=== PATIENT | female | born 1935 | race Caucasian/White ===

== ENCOUNTER 2017-05-30 05:55 | Inpatient (IN) ==
[2017-05-30] MEDS ORDERED: NS 1,000 ML IV ONE (06:00)
--- NOTE | 2017-05-30 06:04 | Emergency Department Report ---
General Adult HPI - General Chief complaint: Altered Mental Status Stated complaint: Sepsis Time Seen by Provider: 05/30/17 06:00 Source: patient, EMS Mode of arrival: EMS - History of Present Illness HPI narrative: Patient is an 81-year-old female, brought to the ER for evaluation of altered mental status, weakness, respiratory distress, crackles. Patient increasing respiratory symptoms for the past 2 days, did receive a chest x-ray yesterday which showed increased atelectasis bilaterally by pulmonary report. Patient was started on azithromycin 500 mg last night. This morning patient was found to be confused, significant crackles low O2 sats. EMS was called patient was placed on oxygen by nasal cannula brought to the emergency department for evaluation. Onset (ago): day(s) - Related Data Allergies Allergy/AdvReac Type Severity Reaction Status Date / Time cefaclor Allergy Unknown Unverified 05/30/17 08:45 latex Allergy Unknown Verified 05/30/17 08:45 [email or web address] Allergy Unknown Unverified 05/30/17 08:45 Review of Systems Constitutional: Reports: fever, weakness. Denies: chills ENT: Reports: congestion. Denies: throat pain, dental pain Cardiovascular: Reports: dyspnea on exertion. Denies: chest pain, palpitations Respiratory: Reports: cough, dyspnea, wheezes Gastrointestinal: Reports: diarrhea. Denies: abdominal pain, nausea, vomiting Neurological: Denies: headache, weakness, numbness Psychiatric: Reports: anxiety. Denies: depression Endocrine: Reports: fatigue PFSH Patient Stated Medical History Parkinson's Disease Yes Hypertension Yes Depression Yes Clinic Medical History (Last Reviewed 04/09/17 @ 09:47 by BENJIE Valentin) Rhinovirus (Acute Medical) Altered mental status (Acute Medical) Abdominal pain (Chronic Medical) Anxiety (Chronic Medical) COPD (chronic obstructive pulmonary disease) (Chronic Medical) Cerebrovascular disease (Chronic Medical) Dementia (Chronic Medical) Depression (Chronic Medical) GERD (gastroesophageal reflux disease) (Chronic Medical) HTN (hypertension) (Chronic Medical) Insomnia (Chronic Medical) Knee pain (Chronic Medical) Parkinsons disease (Chronic Medical) Surgical History: Right hip x 2. Left hip Family History: Family History (Last Reviewed 04/09/17 @ 09:47 by BENJIE Valentin) Mother Heart attack Thyroid disease Diabetes Dementia Arthritis Father Thyroid disease Aneurysm - Social History Smoking status: Never smoker Substance use type: does not use Alcohol intake frequency: does not drink Physical Exam - Head Head exam: normocephalic - Eye Eye exam: Present: PERRL - ENT ENT exam: Present: normal oropharynx, mucous membranes moist - Neck Neck exam: Absent: tenderness - Chest Chest inspection: Present: symmetric chest wall rise. Absent: tenderness - Respiratory Respiratory exam: Present: crackles. Absent: normal lung sounds bilaterally, respiratory distress - Cardiovascular Cardiovascular exam: Present: regular rate, normal rhythm, normal heart sounds - Abdominal Exam Abdominal exam: Present: soft. Absent: distention, tenderness - Extremities Exam Extremities exam: Present: full ROM, normal capillary refill. Absent: tenderness - Skin Skin exam: Present: warm, dry Course Vital Signs Temperature 100.1 F 05/30/17 05:55 Pulse Rate 99 05/30/17 05:55 Respiratory Rate 18 05/30/17 05:55 Blood Pressure 101/56 05/30/17 05:55 Pulse Oximetry 95 05/30/17 05:55 Temperature 100.1 F 05/30/17 05:55 Pulse Rate 104 H 05/30/17 07:06 Respiratory Rate 24 05/30/17 07:06 Blood Pressure 101/56 05/30/17 05:55 Pulse Oximetry 98 05/30/17 07:06 Medical Decision Making - Medical Records Medical records reviewed: Yes: I reviewed the patient's medical records. - Lab Data Lab results reviewed: Yes: I reviewed the patient's lab results. Result diagrams: 05/30/17 06:12 05/30/17 06:13 Lab Results 05/30/17 05/30/17 05/30/17 Range/Units 06:12 06:12 06:13 WBC 4.7 (4.5-11.0) T/MM3 RBC 3.33 L (4.00-5.20) M/MM3 Hgb 11.4 L (12-16) GM/DL Hct 33.5 L (36-46) % MCV 100.6 H (80-100) UM3 MCH 34.2 H (26-34) UUG MCHC 34.0 (31-37) GM/DL RDW Std Deviation 51.1 H (36.9-50.2) FL Plt Count 93 L (130-400) T/MM3 MPV 9.8 (9.4-12.4) UM3 Immature Gran % (Auto) Not performed Neut % (Auto) Not performed Lymph % (Auto) Not performed [place] % (Auto) Not performed Eos % (Auto) Not performed Baso % (Auto) Not performed Neut # (Auto) Not performed Lymph # (Auto) Not performed [place] # (Auto) Not performed Eos # (Auto) Not performed Baso # (Auto) Not performed Abs Immat Gran (auto) Not performed Neutrophils % (Manual) 47.0 (33-66) % Band Neutrophils % 31.0 H (0-6) % Lymphocytes % (Manual) 12.0 L (23-45) % Monocytes % (Manual) 10.0 H (0-9.0) % Neutrophils # (Manual) 2.2 (1.8-7.7) T/MM3 Band Neutrophils # 1.5 T/MM3 Lymphocytes # (Manual) 0.6 L (1-4.8) T/MM3 Monocytes # (Manual) 0.5 (0-0.8) T/MM3 Anisocytosis 1+ RBC Morph Comment Abnormal Turbidity < 20 (0-20) Sodium 136 (134-144) MEQ/L Potassium 3.9 (3.6-5) MEQ/L Chloride 104 (98-107) MEQ/L Carbon Dioxide 25 (22-30) MEQ/L Anion Gap 7 (5-15) MEQ/L BUN 25.0 H (7-17) MG/DL Creatinine 1.1 (0.7-1.2) MG/DL GFR Calculation 48 BUN/Creatinine Ratio 23 (6-26) RATIO Glucose 87 (65-110) MG/DL Calculated Osmolality 265 (261-280) MOSM/KG Calcium 8.7 (8.4-10.2) MG/DL Total Bilirubin 0.70 (0.20-1.30) MG/DL Icterus Index < 2 (0-7) AST 32 (14-36) U/L ALT 25 (9-52) U/L Alkaline Phosphatase 63 (38-126) U/L Troponin I < 0.012 (0-0.12) ng/ml Total Protein 5.6 L (6.3-8.2) G/DL Albumin 3.0 L (3.5-5.0) G/DL Globulin 2.6 (2.4-3.6) G/DL Albumin/Globulin Ratio 1.2 (1.1-2.2) RATIO Plasma Lactate 1.5 (0.6-2.2) MMOL/L Procalcitonin 5.59 H* NG/ML Specimen Hemolysis < 15 (0-25) Ur Collection Type Urine Color (YELLOW) Urine Clarity Urine pH (5.0-8.0) Ur Specific Victor (1.015-1.025) Urine Protein (NEGATIVE) Urine Glucose (UA) (NEGATIVE) Urine Ketones (NEGATIVE) Urine Occult Blood (NEGATIVE) Urine Nitrate (NEGATIVE) Urine Bilirubin (NEGATIVE) Urine Urobilinogen (NORMAL) EU/DL Ur Leukocyte Esterase (NEGATIVE) Urine RBC (0-3) /HPF Urine WBC (0-5) /HPF Ur Transition Epith Cell /HPF Urine Bacteria (NEGATIVE) Ur Culture Indicated? Valproic Acid 77.9 (50-120) UG/ML Adenovirus (PCR) (Negative) B.parapertussis DNA PCR (Negative) C. pneumoniae DNA (PCR) (Negative) Coronavirus OC43 (PCR) (Negative) Coronavirus HKU1 (PCR) (Negative) Coronavirus 229E (PCR) (Negative) Coronavirus NL63 (PCR) (Negative) Human Metapneumovir PCR (Negative) Influenza Type A (PCR) (Negative) Influenza Type B (PCR) (Negative) M. pneumoniae (PCR) (Negative) Parainfluenza 1 (PCR) (Negative) Parainfluenza 2 (PCR) (Negative) Parainfluenza 3 (PCR) (Negative) Parainfluenza 4 (PCR) (Negative) RSV (PCR) (Negative) Entero/Rhino (PCR) (Negative) 05/30/17 05/30/17 Range/Units 06:14 07:22 WBC (4.5-11.0) T/MM3 RBC (4.00-5.20) M/MM3 Hgb (12-16) GM/DL Hct (36-46) % MCV (80-100) UM3 MCH (26-34) UUG MCHC (31-37) GM/DL RDW Std Deviation (36.9-50.2) FL Plt Count (130-400) T/MM3 MPV (9.4-12.4) UM3 Immature Gran % (Auto) Neut % (Auto) Lymph % (Auto) [place] % (Auto) Eos % (Auto) Baso % (Auto) Neut # (Auto) Lymph # (Auto) [place] # (Auto) Eos # (Auto) Baso # (Auto) Abs Immat Gran (auto) Neutrophils % (Manual) (33-66) % Band Neutrophils % (0-6) % Lymphocytes % (Manual) (23-45) % Monocytes % (Manual) (0-9.0) % Neutrophils # (Manual) (1.8-7.7) T/MM3 Band Neutrophils # T/MM3 Lymphocytes # (Manual) (1-4.8) T/MM3 Monocytes # (Manual) (0-0.8) T/MM3 Anisocytosis RBC Morph Comment Turbidity (0-20) Sodium (134-144) MEQ/L Potassium (3.6-5) MEQ/L Chloride (98-107) MEQ/L Carbon Dioxide (22-30) MEQ/L Anion Gap (5-15) MEQ/L BUN (7-17) MG/DL Creatinine (0.7-1.2) MG/DL GFR Calculation BUN/Creatinine Ratio (6-26) RATIO Glucose (65-110) MG/DL Calculated Osmolality (261-280) MOSM/KG Calcium (8.4-10.2) MG/DL Total Bilirubin (0.20-1.30) MG/DL Icterus Index (0-7) AST (14-36) U/L ALT (9-52) U/L Alkaline Phosphatase (38-126) U/L Troponin I (0-0.12) ng/ml Total Protein (6.3-8.2) G/DL Albumin (3.5-5.0) G/DL Globulin (2.4-3.6) G/DL Albumin/Globulin Ratio (1.1-2.2) RATIO Plasma Lactate (0.6-2.2) MMOL/L Procalcitonin NG/ML Specimen Hemolysis (0-25) Ur Collection Type Urine, catheter Urine Color Yellow (YELLOW) Urine Clarity Clear Urine pH 7.0 (5.0-8.0) Ur Specific Victor 1.015 (1.015-1.025) Urine Protein 1+ A (NEGATIVE) Urine Glucose (UA) Negative (NEGATIVE) Urine Ketones Trace A (NEGATIVE) Urine Occult Blood Negative (NEGATIVE) Urine Nitrate Negative (NEGATIVE) Urine Bilirubin Negative (NEGATIVE) Urine Urobilinogen 0.2 (NORMAL) EU/DL Ur Leukocyte Esterase Negative (NEGATIVE) Urine RBC 0-1 (0-3) /HPF Urine WBC 1-3 (0-5) /HPF Ur Transition Epith Cell 3-5 /HPF Urine Bacteria Trace H (NEGATIVE) Ur Culture Indicated? Cult not indicated Valproic Acid (50-120) UG/ML Adenovirus (PCR) Negative (Negative) B.parapertussis DNA PCR Negative (Negative) C. pneumoniae DNA (PCR) Negative (Negative) Coronavirus OC43 (PCR) Negative (Negative) Coronavirus HKU1 (PCR) Negative (Negative) Coronavirus 229E (PCR) Negative (Negative) Coronavirus NL63 (PCR) Negative (Negative) Human Metapneumovir PCR Negative (Negative) Influenza Type A (PCR) Negative (Negative) Influenza Type B (PCR) Negative (Negative) M. pneumoniae (PCR) Negative (Negative) Parainfluenza 1 (PCR) Negative (Negative) Parainfluenza 2 (PCR) Negative (Negative) Parainfluenza 3 (PCR) Negative (Negative) Parainfluenza 4 (PCR) Negative (Negative) RSV (PCR) Negative (Negative) Entero/Rhino (PCR) Detected A (Negative) - Radiology Data Radiology results reviewed: Yes: I reviewed the patient's radiology results. Atelectasis, bibasilar, poor technical film - EKG Data EKG #1 EKG attestation: Yes: I reviewed and interpreted this EKG. Rate: normal Rhythm: NSR [place]/QRS: LAHB/LAFB Interpretation: no acute changes Disposition Clinical Impression: Rhinovirus Altered mental status Qualifiers: Altered mental status type: disorientation Qualified Code(s): R41.0 - Disorientation, unspecified Disposition: 02 To [facility] Condition: Stable Referrals: Mally Biggs MD [Family Provider] - Time of Disposition: 09:04 - Seen By: physician
[2017-05-30] MEDS ORDERED: LEVOFLOXACIN PB 750 MG/150 ML BAG IV SCH (06:15)
--- OUTSIDE RECORDS SUMMARY | 2017-05-30 06:17 | External Medical Summary ---
:1935 Author Organization eClinicalWorks Care Team Providers Name Role Phone Robert Montiel Provider Role Unavailable Allergies No Known Allergies Problems No Known Problems Medications Medication Code System Code Instructions Start Date End Date Status Dosage Seroquel [facility] [address] 25 MG Orally at Jul 21, 1 tablet -10 bedtime 2014 Results No Known Results Summary Purpose eClinicalWorks Submission
--- OUTSIDE RECORDS SUMMARY | 2017-05-30 06:17 | External Medical Summary ---
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 Assessment Dementia F03.90 Active Assessment Anxiety F41.9 Active Problem Anxiety F41.9 Active Assessment 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 Medications Medication Code Code Instructions Start End Date Status Dosage System Date Omeprazole [facility] 13126-88 20 MG Orally 1 capsule 11-10 Once a day Atenolol [facility] 02607-22 25 MG Orally 1 tablet 87-01 Once a day Singulair [facility] 68715-63 10 MG Orally 1 tablet 17-01 Once a day in the evening Sinemet CR [facility] 42918-40 25-100 MG Orally Mar 31, 1 tablet 18-68 Three times 2014 daily Acetaminophen [facility] 20071-98 325 MG Orally 1 tablet 10-01 every 4 hrs as needed Tizanidine HCl [facility] 71547-63 2 MG Orally 1 tablet 34-10 every 8 hrs as needed Aggrenox [facility] 60073-07 25-200 MG Orally 1 capsule 01-60 Twice a day Melatonin [facility] 21486-75 3 MG Orally Once 1 tablet 12-08 a day at bedtime Zofran [facility] 23293-05 4 MG Orally 1 tablet 46-00 Every 6 hrs PRN Dextromethorphan- [facility] 33852-15 20-10 MG Orally October 20, 1 capsule Quinidine 01-60 every 12 hrs 2015 Zoloft [facility] 12374-07 50 MG Orally 1 tablet 00-30 Once a day Vitamin D3 [facility] 19743-30 1000 UNIT Orally 1 capsule 905 Two times daily Vitamin C [facility] 05490-53 500 MG Orally not 509 [place] [address]-14 7.5-325 MG 1 tablet minophen Orally Three times daily PRN Amantadine HCl NDC 37666-05 100 MG Orally 1 tablet 11-00 [place] [address]-97 325 (65 Fe) MG 1 tablet Orally Two times daily Ibuprofen NDC 54580-97 400 MG Orally 1 tablet 80-00 Three times a day BuSpar NDC 0 10 MG Orally 1 tablet [place] [address]-22 50 MG Orally Jul 21, 1 tablet 78-10 Once a day 2014 [place] [address]-38 0.5 MG Orally 1 tablet 55-01 Every 6 [place] [address]-63 100 MG Orally 1 capsule 87-30 Two times daily as needed Procedures Procedure Coding System Code Date Office Visit, Est Pt., Level 3 CPT-4 85160 October 21, 2015 Vital Signs Date/Time: October 21, 2015 Blood Pressure Diastolic 70 mm Hg Blood Pressure Systolic 115 mm Hg Height 62 in Oximetry 98 % Respiratory Rate 16 /min Cardiac Monitoring Heart Rate 66 /min Results No Known Results Summary Purpose eClinicalWorks Submission
--- OUTSIDE RECORDS SUMMARY | 2017-05-30 06:17 | External Medical Summary ---
:1935 Author Organization eClinicalWorks Care Team Providers Name Role Phone Robert Montiel Provider Role Unavailable Allergies No Known Allergies Problems Problem Type Condition Code Onset Dates Condition Status Problem Dementia F03.90 Active Problem Anxiety F41.9 Active Problem Parkinson disease G20 Active Medications No Known Medications Results No Known Results Summary Purpose eClinicalWorks Submission
--- OUTSIDE RECORDS SUMMARY | 2017-05-30 06:17 | External Medical Summary ---
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 Medications Medication Code System Code Instructions Start End Date Status D[place] [address]-18 5-325 MG Orally 1 tablet as taminophen 12-20 Two [place] [address]-19 20 MG Orally 1 capsule 11-10 [place] [address]-17 25-100 MG Orally 1 tablet opa 93-01 [place] [address]-52 25-200 MG Orally 1 capsule 01-60 [place] [address]-63 50 MCG/ACT 1 spray in 53-01 Nasally Once [place] [address]-93 25 MG Orally 1/2 tablet 87-01 [place] [address]-88 10 MG Orally 1 tablet Chloride ER 07- [place] [address]-95 100 MG Orally 1 capsule 92-01 Three times a day Lou Allergy [facility] 09158-21 180 MG Orally 1 tablet 214 [place] [address]-52 25 MG Orally at Jul 21, 1 tablet 75-10 bedtime 2014 Procedures Procedure Coding System Code Date Office Visit, New Pt., Level 5 CPT-4 10909 Jul 21, 2014 Vital Signs Date/Time: Jul 21, 2014 Blood Pressure Systolic 98 mm Hg Weight 142.0 lbs Height 62 in Oximetry 98 % Respiratory Rate 16 /min Cardiac Monitoring Heart Rate 60 /min Blood Pressure Diastolic 62 mm Hg BMI 25.97 Index Results No Known Results Summary Purpose eClinicalWorks Submission
--- OUTSIDE RECORDS SUMMARY | 2017-05-30 06:17 | External Medical Summary ---
:1935 Author Organization eClinicalWorks Care Team Providers Name Role Phone Irene Quarels Provider Role Unavailable Allergies No Known Allergies Problems Problem Type Condition Code Onset Dates Condition Status Problem Chest pain, other 786.59 Active Problem Dyspnea on exertion 786.09 Active Problem S/P Pacemaker Placement - Dual V45.01 Active Problem Palpitations 785.1 Active Problem Sinus Bradycardia 427.89 Active Medications No Known Medications Results No Known Results Summary Purpose eClinicalWorks Submission
--- OUTSIDE RECORDS SUMMARY | 2017-05-30 06:17 | External Medical Summary ---
:1935 Author Organization eClinicalWorks Care Team Providers Name Role Phone Robert Montiel Provider Role Unavailable Allergies, Adverse Reactions, Alerts Substance Reaction Event Type Nubain Info Not Available Drug Allergy Cefaclor Info Not Available Drug Allergy Problems Problem Type Condition Code Onset Dates Condition Status Assessment Dementia w behavior dist 294.11 Active Assessment Primary Parkinsonism 332.0 Active Assessment Dementia with Lewy bodies 331.82 Active Medications Medication Code System Code Instructions Start End Date Status Dosage Date Lou Allergy [facility] 11371-08 180 MG Orally 1 tablet 214 [place] [address]-28 25 MG Orally 1/2 tablet 87-01 [place] [address]-16 10 MG Orally 1 tablet in 17-01 Once a day the evening VESIcare [facility] 12892-14 5 MG Orally Once 1 tablet 82-30 [place] [address]-10 40 MG Orally 1 tablet 40-01 [place] [address]-51 0.5 MG Orally 1/2 tablet 63-01 Twice a day as needed BuSpar NDC 0 10 MG Orally 1 [place] [address]-56 50 MG Orally Jul 21, 1 tablet 78-10 Once a day 2014 [place] [address]-90 7.5-325 MG 1 tablet as taminophen 24-01 Orally every 6 needed hours [place] [address]-34 25-100 MG Orally 1 tablet opa 18-68 [place] [address]-28 20 MG Orally 1 capsule 11-10 [place] [address]-64 25-200 MG Orally 1 capsule 01-60 [place] [address]-37 50 MCG/ACT 1 spray in - Nasally Once a each day nostril Procedures Procedure Coding System Code Date Office Visit, Est Pt., Level 3 CPT-4 91186 Mar 24, 2015 Vital Signs Date/Time: Mar 24, 2015 Blood Pressure Systolic 112 mm Hg Weight 146.4 lbs Height 62 in Oximetry 97 % Respiratory Rate 16 /min Cardiac Monitoring Heart Rate 76 /min Blood Pressure Diastolic 60 mm Hg BMI 26.77 Index Results No Known Results Summary Purpose eClinicalWorks Submission
--- OUTSIDE RECORDS SUMMARY | 2017-05-30 06:19 | External Medical Summary ---
:1935 Author Organization eClinicalWorks Care Team Providers Name Role Phone Robert Montiel Provider Role Unavailable Allergies No Known Allergies Problems No Known Problems Medications No Known Medications Results No Known Results Summary Purpose eClinicalWorks Submission
--- OUTSIDE RECORDS SUMMARY | 2017-05-30 06:19 | External Medical Summary ---
:1935 Author Organization eClinicalWorks Care Team Providers Name Role Phone Robert Montiel Provider Role Unavailable Allergies, Adverse Reactions, Alerts Substance Reaction Event Type Nubain Info Not Available Drug Allergy Cefaclor Info Not Available Drug Allergy Problems Problem Type Condition Code Onset Dates Condition Status Assessment Frontotemporal dementia 331.19 Active Medications Medication Code System Code Instructions Start End Date Status Dosage Date Oxybutynin NDC 75467-98 10 MG Orally 1 tablet Chloride ER 07- Once a day Lou Allergy NDC 91147-82 180 MG Orally 1 tablet 214 Once a day BuSpar NDC 0 10 MG Orally 1 tablet Twice a day Celexa NDC 39116-31 40 MG Orally 1 tablet 40-01 Once a day Atenolol NDC 49231-37 25 MG Orally 1/2 tablet 87-01 Once a day Omeprazole NDC 86957-73 20 MG Orally 1 capsule 11-10 Once a day Hydrocodone-Walter NDC 99633-27 5-325 MG Orally 1 tablet as taminophen 12-20 Two times daily needed Carbidopa-Levod NDC 03117-57 25-250 MG Orally 1 tablet opa 94-01 Three times a day Seroquel NDC 13042-55 25 MG Orally at Jul 06, 3 tablet 75-10 bedtime for 75mg 2014 [place] [address]-76 25 MCG/HR 1 patch to 20-05 [place] [address]-53 25-200 MG Orally 1 capsule 01-60 [place] [address]-52 50 MCG/ACT 1 spray in 53-01 Nasally Once a each day nostril Vital Signs Date/Time: November 12, 2014 Blood Pressure Systolic 126 mm Hg Weight 143.4 lbs Height 62 in Oximetry 96 % Respiratory Rate 16 /min Cardiac Monitoring Heart Rate 70 /min Blood Pressure Diastolic 72 mm Hg BMI 26.23 Index Results No Known Results Summary Purpose eClinicalWorks Submission
--- OUTSIDE RECORDS SUMMARY | 2017-05-30 06:19 | External Medical Summary ---
:1935 Author Organization eClinicalWorks Care Team Providers Name Role Phone Robert Montiel Provider Role Unavailable Allergies No Known Allergies Problems No Known Problems Medications Medication Code System Code Instructions Start End Date [place] D[place] [address]-55 10 MG Orally 1 tablet in - Once a day [place] [address]-39 7.5-325 MG 1 tablet as taminophen - Orally every 6 needed hours as needed Aggrenox [facility] 06839-73 25-200 MG Orally 1 capsule -60 [place] [address]-26 50 MG Orally Jul 21, 1 tablet 78-10 Once a day 2014 Lou Allergy [facility] 73088-28 180 MG Orally 1 tablet 214 Once a day Flonase [facility] 95011-20 50 MCG/ACT 1 spray in Nasally Once [place] [address]-88 25-100 MG Orally Mar 16, 1 tablet 18-68 Three times 2014 every 6 [place] [address]-29 5 MG Orally Once 1 tablet 82-30 [place] [address]-38 0.5 MG Orally 1 tablet 55-01 [place] [address]-84 20 MG Orally 1 capsule 11-10 Once a day BuSpar NDC 0 10 MG Orally 1 [place] [address]-41 40 MG Orally 1 tablet 40-01 [place] [address]-29 25 MG Orally 1/2 tablet 87-01 Once a day Results No Known Results Summary Purpose eClinicalWorks Submission
--- OUTSIDE RECORDS SUMMARY | 2017-05-30 06:19 | External Medical Summary | Referral Summary ---
:1935 Author Organization [facility] Address [address] [place] [address] Care Team Providers Name Role Phone Mally Biggs Primary Care Physician Encounter VC Date(s): 11/05/15 - 11/09/15 [address] [place] [address] Discharge Disposition: 03-[facility] Facility Attending Physician: Robert Montiel MD Admitting Physician: Robert Montiel MD Vital Signs Most recent to oldest [Reference Range]: 1 Temperature Oral [35.8-37.3 degC] 36.9 degC (11/09/15 12:00 PM) Temperature Temporal Artery [36.3-37.8 degC] 36.4 degC (11/07/15 11:00 AM) Peripheral Pulse Rate [60-100 bpm] 74 bpm (11/09/15 12:00 PM) Heart Rate Monitored [60-100 bpm] 95 bpm (11/05/15 10:59 PM) Respiratory Rate [14-20 br/min] 20 br/min (11/09/15 12:00 PM) Blood Pressure [90-140/60-90 mmHg] 106/74 mmHg (11/09/15 12:00 PM) Mean Arterial Pressure, Cuff 99 mmHg (11/05/15 10:59 PM) SpO2 93 % (11/09/15 12:00 PM) Remote Telemetry Ongoing (11/08/15 11:36 AM) Problem List Condition Effective Dates Status Health Status Informant Acute pain(Confirmed) Resolved At risk for aspiration(Confirmed)1 Active At risk for infection(Confirmed)2 Active Benign essential hypertension Active (disorder)(Confirmed) Communication Resolved impairment(Confirmed)3, 4, 5, 6 Depression(Confirmed) Active patient Fluid volume deficit(Confirmed)7 Resolved GERD(Confirmed) Active patient Goiter(Confirmed) 2008 Active Impaired skin integrity(Confirmed)8 Active Osteoporosis(Confirmed) Active Parkinson's(Confirmed) Active patient Pressure ulcer stage 3(Confirmed) Active Self -care deficit(Confirmed)9 Resolved Tissue perfusion Resolved alteration(Confirmed)10 Urinary incontinence(Confirmed) Active patient 1Problem added automatically by system based on initiation of At Risk for Aspiration Plan of [id number] added automatically by system based on initiation of At Risk for Infection in Nutrition Planof [id number] updated automatically by system based on initiation of Impaired Communication Plan of [id number] updated automatically by system based on initiation of Impaired Communication Plan of [id number] updated automatically by system based on initiation of Impaired Communication Plan of [id number] added automatically by system based on initiation of Impaired Communication Plan of [id number] added automatically by system based on initiation of Fluid Deficit Plan of [id number] added automatically by system based on initiation of Impaired Skin Integrity Plan of [id number] added automatically by system based on initiation of Self Care Deficit Plan of [id number] added automatically by system based on initiation of Tissue Perfusion Cerebral Plan of Care Allergies, Adverse Reactions, Alerts Substance Reaction Severity Status Ceclor unknown Unknown Active Nalbuphine Hydrochloride unknown Unknown Active Nubain unknown Unknown Active Medications acetaminophen 650 mg, Oral, q4hr, Pain Mild (1-3), 0 Refill(s) Start Date: 11/05/15 Status: OrderedAggrenox 25 mg-200 mg oral capsule, extended release 1 caps, Oral, BID, # 60 caps, 0 Refill(s) Start Date: 11/05/15 Status: Orderedatenolol 25 mg oral tablet 25 mg 1 tabs, Oral, Daily, 0 Refill(s) Start Date: 11/09/15 Status: Orderedcarbidopa-levodopa 25 mg-100 mg oral tablet 1 tabs, Oral, QID, 0 Refill(s) Start Date: 11/09/15 Status: OrderedColace 100 mg oral capsule 100 mg 1 caps, Oral, BID, 0 Refill(s) Start Date: 11/09/15 Status: OrderedCommunication Information obtained from [facility] , 0 Refill(s) Start Date: 11/05/15 Status: Ordereddiazepam 5 mg/mL injectable solution 2 mg 0.4 mL, IV Push, q4hr, Agitation, 0 Refill(s) Start Date: 11/09/15 Status: Ordereddivalproex sodium 250 mg oral delayed release tablet 250 mg 1 tabs, Oral, TID, 0 Refill(s) Start Date: 11/09/15 Status: OrderedDulcolax Laxative 10 mg rectal suppository 10 mg 1 supp, Rectal, Daily, as needed for constipation, # 10 supp, 0 Refill(s) Start Date: 11/05/15 Status: Orderedferrous sulfate 325 mg, Oral, Daily, 0 Refill(s) Start Date: 11/05/15 Status: OrderedNon-Formulary Med 0 Refill(s) Start Date: 11/09/15 Status: OrderedNuedexta 20 mg-10 mg oral capsule 1 caps, Oral, q12hr, 0 Refill(s) Start Date: 11/05/15 Status: Orderedomeprazole 20 mg, Oral, Daily, 0 Refill(s) Start Date: 04/11/14 Status: Orderedrivastigmine 4.6 mg/24 hr transdermal film, extended release 1 patches, TransDermal, Daily, 0 Refill(s) Start Date: 11/09/15 Status: OrderedRozerem 8 mg oral tablet 8 mg 1 tabs, Oral, Bedtime (once a day), 0 Refill(s) Start Date: 11/09/15 Status: OrderedSenokot S 50 mg-8.6 mg oral tablet 1 tabs, Oral, Daily, Constipation, 0 Refill(s) Start Date: 11/09/15 Status: OrderedSEROquel 50 mg oral tablet 50 mg 1 tabs, Oral, BID, 0 Refill(s) Start Date: 11/09/15 Status: OrderedSingulair 10 mg, Oral, qAM, 0 Refill(s) Start Date: 11/05/15 Status: Orderedsulfamethoxazole-trimethoprim 400 mg-80 mg oral tablet 1 tabs, Oral, BID, 0 Refill(s) Start Date: 11/09/15 Status: OrderedTums 500 mg oral tablet, chewable 500 mg 1 tabs, Oral, q4hr, GERD/Heartburn, 0 Refill(s) Start Date: 11/09/15 Status: OrderedVitamin B Complex with Folic Acid oral tablet Oral, Daily, 0 Refill(s) Start Date: 11/09/15 Status: OrderedVitamin C 500 mg, Oral, Daily, 0 Refill(s) Start Date: 11/05/15 Status: OrderedVitamin D3 1000 intl units oral tablet 1,000 Intl_Units 1 tabs, Oral, Daily, 0 Refill(s) Start Date: 11/09/15 Status: Ordered Results Hematology Most recent to oldest [Reference Range]: 1 WBC [4.8-10.8 10*3/uL] 7.4 10*3/uL (11/08/15 4:58 AM) RBC [4.00-5.20] 4.57 (11/08/15 4:58 AM) Hgb [12.0-16.0 gm/dL] 13.8 gm/dL (11/08/15 4:58 AM) Hct [37.0-47.0 %] 42.7 % (11/08/15 4:58 AM) MCV [82.0-99.0 fL] 93.4 fL (11/08/15 4:58 AM) MCH [27.0-32.0 pg] 30.2 pg (11/08/15 4:58 AM) MCHC [32.0-36.0 gm/dL] 32.3 gm/dL (11/08/15 4:58 AM) RDW [11.5-14.5 %] 13.6 % (11/08/15 4:58 AM) Platelet [150-400 10*3/uL] 259 10*3/uL (11/08/15 4:58 AM) MPV [9.4-12.4 fL] 9.2 fL *LOW* (11/08/15 4:58 AM) Immature Granulocytes [0.0-1.0 %] 0.5 % (11/08/15 4:58 AM) Neutrophils [51-75 %] 54 % (11/08/15 4:58 AM) Lymphocytes [20-46 %] 29 % (11/08/15 4:58 AM) Monocytes [4-11 %] 10 % (11/08/15 4:58 AM) Eosinophils [0-4 %] 7 % *HI* (11/08/15 4:58 AM) Basophils [0-2 %] 0 % (11/08/15 4:58 AM) Neutro Absolute [1.90-7.00 10*3] 3.93 10*3 (11/08/15 4:58 AM) Lymph Absolute [0.80-3.30 10*3] 2.10 10*3 (11/08/15 4:58 AM) [place] Absolute [0.30-1.00 10*3] 0.73 10*3 (11/08/15 4:58 AM) Eos Absolute [0.00-0.50 10*3] 0.52 10*3 *HI* (11/08/15 4:58 AM) Baso Absolute [0.00-0.20 10*3] 0.03 10*3 (11/08/15 4:58 AM) Nucleated RBC Automated [0 /100 WBC] 0.0 /100 WBC (11/08/15 4:58 AM) Coagulation Most recent to oldest [Reference Range]: 1 INR [0.9-1.2] 1.0 (11/08/15 4:58 AM) PTT [25.0-35.0 seconds] 33.8 seconds (11/08/15 4:58 AM) Chemistry Most recent to oldest [Reference Range]: 1 Sodium Lvl [136-144 mEq/L] 138 mEq/L (11/08/15 4:58 AM) Potassium Lvl [3.6-5.1 mEq/L] 4.9 mEq/L (11/08/15 4:58 AM) Chloride [99-109 mEq/L] 106 mEq/L (11/08/15 4:58 AM) CO2 [22-32 mEq/L] 21 mEq/L *LOW* (11/08/15 4:58 AM) AGAP [3-20] 11 (11/08/15 4:58 AM) BUN [4-20 mg/dL] 18 mg/dL (11/08/15 4:58 AM) Glucose Lvl [70-100 mg/dL] 107 mg/dL *HI* (11/08/15 4:58 AM) Creatinine Lvl [0.44-1.03 mg/dL] 1.33 mg/dL *HI* (11/08/15 4:58 AM) eGFR [>60] 38 1 *ABN* (11/08/15 4:58 AM) Calcium Lvl [8.6-10.0 mg/dL] 9.1 mg/dL (11/08/15 4:58 AM) Albumin Lvl [3.5-4.8 gm/dL] 3.2 gm/dL *LOW* (11/08/15 4:58 AM) Total Protein [6.1-7.9 gm/dL] 6.1 gm/dL (11/08/15 4:58 AM) Globulin [1.9-4.3 gm/dL] 2.9 gm/dL (11/08/15 4:58 AM) ALT [14-54 U/L] 5 U/L *LOW* (11/08/15 4:58 AM) AST [15-41 U/L] 13 U/L *LOW* (11/08/15 4:58 AM) Alk Phos [26-104 U/L] 62 U/L (11/08/15 4:58 AM) Bili Total [0.2-1.2 mg/dL] 0.5 mg/dL 2 (11/08/15 4:58 AM) Troponin [<0.06 ng/mL] <0.05 ng/mL (11/05/15 6:59 PM) Vitamin B12 Lvl [213-816 pg/mL] 392 pg/mL (11/08/15 4:58 AM) Folate Lvl [7.0-31.4 ng/mL] 5.1 ng/mL *LOW* (11/08/15 4:58 AM) TSH with Reflex Free T4 [0.35-5.50] 2.37 (11/08/15 4:58 AM) Hgb A1c [4.1-5.6 %] 5.8 % *HI* (11/08/15 4:58 AM) eAvg Glucose 119.8 mg/dL (11/08/15 4:58 AM) 1Result Comment: Multiply eGFR results by 1.21 for race.2Result Comment: Naproxen, specifically the metabolite O-desmethylnaproxen, may cause spurious elevation in Total Bilirubin levels.Urinalysis Most recent to oldest [Reference Range]: 1 UA Color Yellow (11/05/15 6:59 PM) UA Appear Sl Cloudy (11/05/15 6:59 PM) UA pH [5.0-8.0] 5.0 (11/05/15 6:59 PM) UA Leuk Est [Negative] Negative (11/05/15 6:59 PM) UA Nitrite [Negative] Negative (11/05/15 6:59 PM) UA Protein [Negative] Negative (11/05/15 6:59 PM) UA Glucose [Negative] Negative (11/05/15 6:59 PM) UA Ketones [Negative] Trace *ABN* (11/05/15 6:59 PM) UA Urobilinogen [<1.0] Negative (11/05/15 6:59 PM) UA Bili [Negative] Negative (11/05/15 6:59 PM) UA Blood [Negative] Negative (11/05/15 6:59 PM) UA Spec Grav [1.003-1.030] 1.020 (11/05/15 6:59 PM) Type Clean Catch (11/05/15 6:59 PM) Immunizations Vaccine Date Refusal Reason influenza virus vaccine, inactivated 07/19/11 pneumococcal 23-polyvalent vaccine 07/18/11 tetanus-diphth toxoids (Td) adult/adol 08/10/01 Procedures Procedure Date Related Diagnosis Body Site Nephrectomy 2009 Cholecystectomy 2009 Thyroid surgery 11/10/07 Hip arthroplasty1 1right Social History Social History Type Response Smoking Status Never smoker Assessment and Plan No data available for this section
--- OUTSIDE RECORDS SUMMARY | 2017-05-30 06:19 | External Medical Summary ---
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
--- OUTSIDE RECORDS SUMMARY | 2017-05-30 06:19 | External Medical Summary ---
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 Problem 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 Problem Anxiety F41.9 Active Assessment Parkinson disease G20 Active Problem Parkinson disease G20 Active Problem Dementia F03.90 Active Assessment Dementia in other diseases F02.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 classified elsewhere with behavioral disturbance Assessment 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 Assessment Primary Parkinsonism 332.0 Active Assessment Primary Parkinsonism G20 Active Assessment Dementia w behavior dist 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.11 Active Medications Medication Code Code Instructions Start End Date Status Dosage System Date Amantadine HCl [facility] 31039-79 100 MG Orally October 27, 1 tablet 11-00 Twice a day 2015 Hydrocodone-Aceta [facility] 39064-27 7.5-325 MG 1 tablet minophen 24-01 Orally Three times daily PRN Omeprazole [facility] [address]2597-52 20 MG Orally 1 capsule 11-10 [place] [address]-96 0.5 MG Orally 1 tablet 55-01 Every 6 [place] [address]-48 40 MG Orally 1 tablet 40-01 [place] [address]-76 25-100 MG Orally 1 tablet 18-68 Three times every 6 [place] [address]-56 500 MG Orally not 509 defined Atenolol [facility] 36095-00 25 MG Orally 1 tablet 87-01 Once a day BuSpar NDC 0 10 MG Orally 1 tablet [place] [address]-46 325 MG Orally 1 tablet 10-01 every 4 hrs as needed Zofran [facility] 78359-26 4 MG Orally 1 tablet 46-00 Every 6 hrs PRN Ibuprofen [facility] 37234-63 400 MG Orally 1 tablet 80-00 Three times a day Vitamin D3 [facility] 98077-96 1000 UNIT Orally 1 capsule 905 Two times daily Tizanidine HCl [facility] 67790-36 2 MG Orally 1 tablet 34-10 every 8 hrs as needed Colace [facility] 46462-22 100 MG Orally 1 capsule 87-30 Two times daily as needed Melatonin [facility] 22827-96 3 MG Orally Once 1 tablet 12-08 a day at bedtime Aggrenox [facility] 17427-68 25-200 MG Orally 1 capsule 01-60 Twice a day Singulair [facility] 43998-18 10 MG Orally 1 tablet 17-01 Once a day in the evening Ferrous Sulfate [facility] 78068-67 325 (65 Fe) MG 1 tablet -01 Orally Two times daily Procedures Procedure Coding System Code Date Office Visit, Est Pt., Level 3 CPT-4 94978 Aug 20, 2015 Vital Signs Date/Time: Aug 20, 2015 Blood Pressure Diastolic 76 mm Hg Blood Pressure Systolic 116 mm Hg Height 62 in Oximetry 93 % Respiratory Rate 20 /min Cardiac Monitoring Heart Rate 64 /min Results No Known Results Summary Purpose [employer]Works Submission
[2017-05-30] MEDS: SALINE FLUSH 10ml SYRINGE IVF PRN ×3 (06:32→23:25)
--- NOTE | 2017-05-30 07:58 | XRay Report ---
Indication: altered mental status shortness of air sepsis PROCEDURE: XR chest 1V: Encounter: Initial Comparison: None Findings: Lungs are hypoinflated. Linear areas of opacity in both lower lobes could represent atelectasis. Upper lung lopez are grossly clear. No pneumothorax or definite effusion. Left pacemaker. Cardiac silhouette is within normal limits allowing for hypoinflation. Pulmonary vascularity is somewhat obscured due to motion artifact. Impression: Hypoinflation with bibasilar probable atelectasis. .
[2017-05-30] MEDS ORDERED: NS 1,200 ML IV SCH (08:30)
--- NOTE | 2017-05-30 09:45 | History & Physical Report ---
History of Present Illness Date: 05/30/17 Chief complaint: shortness of breath, cough, altered mental status HPI: Patient is an 81 yo from [facility] who was brought in due to worsening cough, weakness and altered mental status. She has had increasing cough over the past few days. This morning she was found to have low O2 sats and was confused, prompting her visit. She was given a dose of Zithromax 500mg yesterday for possible pneumonia. CXR yesterday showed increased atelectasis. CXR today showed hypoinflation with bibasilar atelectasis. No obvious infiltrate. She was started on O2 en route to the hospital She was given 30mg/kg of IVF's in the ER as she had persistent hypotension. She was given a dose of Levaquin 750mg as well. RT suctioned a large amount of mucous. Her lactate was normal at 1.5. Procalcitonin elevated at 5.59. Normal WBC but has elevated bands. Patient's PCP is Dr. Biggs. Pt is a full transfer with lift. History is taken from the [id number] and ED physician as patient is too weak to communicate. Review of Systems ROS unobtainable: due to mental status Review of systems: Nurses report cough and SOA and confusion PFSH Medical History Abdominal pain (Chronic Medical) Anxiety (Chronic Medical) Cerebrovascular disease (Chronic Medical) Dementia (Chronic Medical) Depression (Chronic Medical) GERD (gastroesophageal reflux disease) (Chronic Medical) HTN (hypertension) (Chronic Medical) Insomnia (Chronic Medical) Knee pain (Chronic Medical) Parkinsons disease (Chronic Medical) Surgical History: Right hip x 2. Left hip Family History: Family History Mother Heart attack Thyroid disease Diabetes Dementia Arthritis Father Thyroid disease Aneurysm - Social History Smoking status: Never smoker Substance use type: does not use Alcohol intake frequency: does not drink Housing: jail ([facility]) Current occupational status: retired Current residence: [place] Social history: PCP- Dr. Biggs Neuro - Dr. Gomes Medications Home Medications Medication Instructions Recorded Confirmed Type Acetaminophen 650 mg PO Q4H PRN 05/30/17 05/30/17 History Albuterol Sulfate 2.5 mg AEROSOL Q6H PRN 05/30/17 05/30/17 History Ascorbate Calcium [Vitamin C] 500 mg PO DAILY 05/30/17 05/30/17 History Aspirin/Dipyridamole [Aggrenox 25 1 cap PO BID 05/30/17 05/30/17 History mg-200 mg Capsule] Atenolol [Tenormin] 25 mg PO DAILY 05/30/17 05/30/17 History Azithromycin 500 mg PO 1800 05/30/17 05/30/17 History Bisacodyl Supp [Dulcolax] 10 mg RECTALLY DAILY PRN 05/30/17 05/30/17 History Buspirone [Buspar] 10 mg PO BID 05/30/17 05/30/17 History Carbidopa/Levodopa 1 tab PO Q3H 05/30/17 05/30/17 History [Carbidopa-Levodopa 25-100 Tab] Cholecalciferol (Vitamin D3) 2,000 unit PO DAILY 05/30/17 05/30/17 History [Vitamin D3] Divalproex Sodium [Depakote] 250 mg PO TIDWM 05/30/17 05/30/17 History Docusate Sodium [Colace] 100 mg PO BID 05/30/17 05/30/17 History Furosemide [Lasix] 20 mg PO DAILY 05/30/17 05/30/17 History Gabapentin [Neurontin] 100 mg PO HS 05/30/17 05/30/17 History Guaifenesin Oral Liq [Robitussin] 100 mg PO Q4H PRN 05/30/17 05/30/17 History Hydrocodone/APAP 5/325 [[place] 1 tab PO Q6H PRN 05/30/17 05/30/17 History 5/325] Lisinopril [Prinivil] 5 mg PO DAILY 05/30/17 05/30/17 History Magnesium Hydroxide [Milk of 30 ml PO Q72H PRN 05/30/17 05/30/17 History Magnesia] Melatonin 3 mg PO HS PRN 05/30/17 05/30/17 History Meloxicam 7.5 mg PO NOON 05/30/17 05/30/17 History Nystatin Powder [Mycostatin] 1 applic TP BID PRN 05/30/17 05/30/17 History Omeprazole Magnesium [Prilosec Otc] 20 mg PO DAILY PRN 05/30/17 05/30/17 History Potassium Chloride [K-Dur] 10 meq PO Q2D 05/30/17 05/30/17 History Pramipexole Di-HCl [Mirapex] 0.125 mg PO BID 05/30/17 05/30/17 History Quetiapine [Seroquel] 25 mg PO BID 05/30/17 05/30/17 History Rivastigmine [Exelon] 1 patch TD DAILY 05/30/17 05/30/17 History Sertraline [Zoloft] 25 mg PO DAILY 05/30/17 05/30/17 History Trolamine Salicylate 10% Cream 1 applic TOP TID PRN 05/30/17 05/30/17 History [Aspercreme] guaiFENesin [Mucinex] 600 mg PO Q12H PRN 05/30/17 05/30/17 History Allergies Allergy/AdvReac Type Severity Reaction Status Date / Time cefaclor Allergy Unknown Unverified 05/30/17 08:45 latex Allergy Unknown Verified 05/30/17 08:45 [email or web address] Allergy Unknown Unverified 05/30/17 08:45 Exam Vital Signs: Temperature 98.7 F 05/30/17 09:00 Pulse Rate 96 05/30/17 09:00 Respiratory Rate 27 H 05/30/17 09:00 Blood Pressure 105/57 05/30/17 09:00 Pulse Oximetry 98 05/30/17 09:00 - Constitutional Present: mild distress, well nourished, well developed - Routine HEENT Exam Head: Present: normocephalic, atraumatic Eye: Present: PERRL ENT: Present: oropharynx clear, dentition normal (dentures) - Routine Neck Exam Present: supple. Absent: lymphadenopathy, thyromegaly - Routine Respiratory Exam Present: decreased breath sounds, crackles (notes R anterior chest. Exam limited.). Absent: wheezes - Routine Cardiovascular Exam Present: RRR, S1, S2. Absent: murmur - Routine Abdominal Exam Present: soft, normoactive bowel sounds, non distended. Absent: tenderness - Routine Extremities Exam Present: edema (1+ RLE, none LLE), normal capillary refill - Routine Skin Exam Present: dry, warm - Routine Neurological Exam Present: altered mental status (will open eyes briefly and try to respond to questions, but she is too weak to vocalize and be understood. ), tremors. Absent: normal speech - Routine Psychiatric Exam Present: cooperative, unable to assess Results - Labs CBC & Chem 7: 05/30/17 06:12 05/30/17 06:13 Labs: Laboratory Tests 05/30/17 05/30/17 06:12 06:13 Troponin I < 0.012 Plasma Lactate 1.5 Procalcitonin 5.59 H* Laboratory Tests 05/30/17 07:22 Ur Collection Type Urine, catheter Urine Color Yellow Urine Clarity Clear Urine pH 7.0 Ur Specific [place] 1.015 Urine Protein 1+ A Urine Glucose (UA) Negative Urine Ketones Trace A Urine Occult Blood Negative Urine Nitrate Negative Urine Bilirubin Negative Urine Urobilinogen 0.2 Ur Leukocyte Esterase Negative Urine RBC 0-1 Urine WBC 1-3 Ur Transition Epith Cell 3-5 Urine Bacteria Trace H Laboratory Tests 05/30/17 06:13 Valproic Acid 77.9 - Imaging and Cardiology Chest x-ray Additional comments: Date of Exam: 05/30/17 Ordering Provider: Manish Smith MD Type of Exam(s): XR chest 1V Reason for Exam(s): altered mental status shortness of air sepsis Indication: altered mental status shortness of air sepsis PROCEDURE: XR chest 1V: Encounter: Initial Comparison: None Findings: Lungs are hypoinflated. Linear areas of opacity in both lower lobes could represent atelectasis. Upper lung lopez are grossly clear. No pneumothorax or definite effusion. Left pacemaker. Cardiac silhouette is within normal limits allowing for hypoinflation. Pulmonary vascularity is somewhat obscured due to motion artifact. Impression: Hypoinflation with bibasilar probable atelectasis. Assessment and Plan (1) Altered mental status Current visit: Yes Status: Acute (2) Rhinovirus Current visit: Yes Status: Acute Assessment and Plan: Assessment: Rhinovirus Severe sepsis - based on suspected pulmonary source, SIRS criteria of tachycardia and bandemia and evidence of organ dysfunction with thrombocytopenia Respiratory distress with hypoxia Altered mental status Thrombocytopenia Macrocytic anemia Anxiety Cerebrovascular disease Dementia Depression GERD (gastroesophageal reflux disease) HTN (hypertension) Insomnia Knee pain Parkinsons disease Plan: Admit for observation to hospitalist team, Dr Liu attending. Continue Levaquin 750mg IV q d given the elevated procalcitonin and bandemia. Repeat CBC in am. Repeat lactate reflexed per sepsis protocol. Duoneb txs scheduled and prn. RT consult. O2 as needed. Hold IVF's as patient has had 30ml/kg in ER per sepsis protocol. Repeat BMP in am. SCD's for DVT prophylaxis. Due to platelet count of 93 will not initiate Lovenox. Repeat CXR in am Repeat EKG tomorrow to eval QT interval given potential med interactions prolonging QT interval. Telemetry. OT/PT eval tomorrow assuming patient is improving. Care to return to at [facility] on discharge. Unable to elicit code status from patient at the present time. [id number] will check with daughter. Full code for now. I have independently evaluated and examined this patient. I reviewed the chart, the patient's history, and the LOG DATA TECHNICIAN/PA's documented findings as above. We discussed and formulated the assessment and plan as above with additions as below: Mrs. Madrid is an 81 year old sent to the ER from [facility] for cough, AMS. She needed supplemental O2 initially until after NT suctioning. Per report , she had a fever at [place], but temperature was not in records. She is lethargic and unable to provide history. Her son and his are bedside and help with the history. They became aware of a cough Sunday evening. The patient's mental status was normal then. Yesterday, the patient was seen at Dr. Biggs's office and started on Zithromax. Because of her decline she was transported to ER. She is positive for rhinovirus. CXR shows atelectasis. Levaquin was started. She got fluid boluses for hypotension. When seen, patient was on RA. She opened her eyes but did not talk. Patient is drowsy. She has diminished breath sounds with crackles at the bases. Heart is regular. Abdomen is benign. Edema more on RLE than LLE. She has mild BUE tremor when awake Continue Levaquin for now. Repeat cxr. d/w family that patient needs to be more alert to eat or drink. Make incentive spirometer available for her along with duonebs. Now in droplet precautions. Monitor for increased confusion. Continue home meds for Parkinsons. Hold lisinopril or atenolol if SBP<120. Hospital Course Summary Disclaimer: The visit summary below is not to be considered part of the above Progress Note. Hospital Course: Assessment: Rhinovirus Severe sepsis - based on suspected pulmonary source, SIRS criteria of tachycardia and bandemia and evidence of organ dysfunction with thrombocytopenia Respiratory distress with hypoxia Altered mental status Thrombocytopenia Macrocytic anemia Anxiety Cerebrovascular disease Dementia Depression GERD (gastroesophageal reflux disease) HTN (hypertension) Insomnia Knee pain Parkinsons disease 05/30/17 - hospital admission for observation Admit for observation to hospitalist team, Dr Liu attending. Continue Levaquin 750mg IV q d given the elevated procalcitonin and bandemia. Repeat CBC in am. Repeat lactate reflexed per sepsis protocol. Duoneb txs scheduled and prn. RT consult. O2 as needed. Hold IVF's as patient has had 30ml/kg in ER per sepsis protocol. Repeat BMP in am. SCD's for DVT prophylaxis. Due to platelet count of 93 will not initiate Lovenox. Repeat CXR in am OT/PT eval tomorrow assuming patient is improving. Care to return to at [facility] on discharge. Unable to elicit code status from patient at the present time. [id number] will check with daughter. Full code for now. 05/30/17 12:38 Continue Levaquin for now. Repeat cxr. d/w family that patient needs to be more alert to eat or drink. Make incentive spirometer available for her along with duonebs. Now in droplet precautions. Monitor for increased confusion. Continue home meds for Parkinsons. Hold lisinopril or atenolol if SBP<120.
[2017-05-30 09:51] VITALS: BMI 29.4
[2017-05-30] MEDS ORDERED: ALBUTEROL/IPRATROPIUM 2.5mg-0.5mg/3ml NEB AEROSOL PRN (10:29)
[2017-05-30] MEDS ORDERED: GUAIFENESIN LA 600 MG TABLET PO PRN (10:53)
[2017-05-30] MEDS ORDERED: MELATONIN 1 MG TABLET PO PRN (10:53)
[2017-05-30] MEDS ORDERED: BISACODYL 10 MG SUPPOSITORY RECTALLY PRN (10:53)
[2017-05-30] MEDS ORDERED: HYDROCODONE/APAP 5mg/325mg TABLET PO PRN (10:53)
--- NOTE | 2017-05-30 12:18 | Pharmacy Consult- Renal Dosing ---
Pharamcy Consul-Renal Dosing - Consult Information RENAL DOSING: Today's SCr = 1.1 mg/dl. Calculated CrCl = 38 ml/min. Levofloxacin was started 750 mg iv every 24 hours. Due to the patient's renal function I changed the Levaquin to 750 mg iv every 48hours per the Pharmacy Renal Monitoring and Adjustment Program. Thank you, Sb Justin, [facility]
[2017-05-30] MEDS: DIVALPROEX 250 MG TABLET PO SCH ×2 (12:31→17:42)
[2017-05-30] MEDS: MELOXICAM 7.5 MG TABLET PO SCH (12:32)
[2017-05-30] MEDS: PANTOPRAZOLE 40 MG INJECTION IVP SCH (12:33)
[2017-05-30] MEDS: PRAMIPEXOLE 0.25 MG TABLET PO SCH (20:31)
[2017-05-30] MEDS: BUSPIRONE 10 MG TABLET PO SCH (20:31)
[2017-05-30] MEDS: GABAPENTIN 100 MG CAPSULE PO SCH (20:31)
[2017-05-30] MEDS: ASPIRIN/DIPYRIDAMOLE 25 MG/200 MG CAPSULE PO SCH (20:31)
[2017-05-30] MEDS: QUETIAPINE 25 MG TABLET PO SCH (20:31)
[2017-05-30] MEDS ORDERED: FALL RISK - PHARMACY CONSULT XX ONE (23:06)
[2017-05-31] MEDS: SALINE FLUSH 10ml SYRINGE IVF PRN (05:28)
[2017-05-31] MEDS: ASCORBIC ACID 500 MG TABLET PO SCH (08:05)
[2017-05-31] MEDS: SERTRALINE 25 MG TABLET PO SCH (08:05)
[2017-05-31] MEDS: DIVALPROEX 250 MG TABLET PO SCH ×3 (08:05→17:47)
[2017-05-31] MEDS: QUETIAPINE 25 MG TABLET PO SCH ×2 (08:05→20:20)
[2017-05-31] MEDS: PRAMIPEXOLE 0.25 MG TABLET PO SCH ×2 (08:05→20:20)
[2017-05-31] MEDS: ASPIRIN/DIPYRIDAMOLE 25 MG/200 MG CAPSULE PO SCH ×2 (08:05→20:15)
[2017-05-31] MEDS: BUSPIRONE 10 MG TABLET PO SCH ×2 (08:06→20:16)
[2017-05-31] MEDS: ATENOLOL 25 MG TABLET PO SCH (08:06)
[2017-05-31] MEDS: PANTOPRAZOLE 40 MG INJECTION IVP SCH (08:07)
[2017-05-31] MEDS: RIVASTIGMINE 4.6 MG/24 HR PATCH TD SCH (08:07)
[2017-05-31] MEDS: RIVASTIGMINE PATCH REMOVAL TD SCH (08:08)
--- NOTE | 2017-05-31 08:15 | XRay Report ---
INDICATION: f-u atelectasis, soa cough PROCEDURE: CHEST 2-VIEWS UPRIGHT (PA & LAT) Encounter: Initial COMPARISON: May 30, 2017 FINDINGS: Lungs are slightly better aerated on today's exam but remain mildly hypoinflated. Linear atelectasis remains in the right lower lobe. Linear area of probable atelectasis in the left base has improved but is somewhat obscured by the patient's pacemaker. No new areas of airspace disease. No pneumothorax or effusion. Heart size and mediastinal contours are stable. Pulmonary vascularity appears normal. Severe upper lumbar compression fracture, likely chronic. Impression: Improving atelectasis. .
[2017-05-31] MEDS ORDERED: LISINOPRIL 5 MG TABLET PO SCH (09:00)
[2017-05-31] MEDS ORDERED: FUROSEMIDE 20 MG TABLET PO SCH (09:00)
--- NOTE | 2017-05-31 09:53 | Progress Note ---
<Imani Alegria D - Last Filed: 05/31/17 09:45> - Date 05/31/17 Subjective: Barbara was alert, and able to answer questions though some of her responses were difficult to understand. She wasn't able to tell me where she was. She denied any pain or SOA. She denied any nausea. She had difficulty following all commands - ie didn't take a deep breath on auscultation. Objective Vital signs: Temperature 96.8 F 05/31/17 07:38 Pulse Rate 80 05/31/17 07:38 Respiratory Rate 18 05/31/17 07:38 Blood Pressure 106/66 05/31/17 07:38 Pulse Oximetry 94 05/31/17 07:38 Height/Weight/BMI: Weight 73.8 kg - Constitutional Present: no acute distress, well nourished, well developed - Routine HEENT Exam Eye: Absent: conjunctival icterus ENT: Present: mucous membranes moist, oropharynx clear - Routine Respiratory Exam Present: decreased breath sounds, diminished air movement - Routine Cardiovascular Exam Present: RRR, S1, S2 - Routine Abdominal Exam Present: soft, normoactive bowel sounds, non distended, non tender - Routine Extremities Exam Present: edema (trace BLE) - Routine Skin Exam Present: intact, dry, warm - Routine Neurological Exam Present: alert, facial asymmetry (subtle decrease in right nasolabial fold with the corner of lip curving downward) - Routine Psychiatric Exam Present: cooperative Results - Labs CBC & Chem 7: 05/31/17 04:11 05/31/17 04:11 Assessment and Plan (1) Rhinovirus Current visit: Yes Status: Acute (2) Altered mental status Current visit: Yes Status: Acute Assessment and Plan: Assessment: Rhinovirus Severe sepsis - based on suspected pulmonary source, SIRS criteria of tachycardia and bandemia and evidence of organ dysfunction with thrombocytopenia Respiratory distress with hypoxia Altered mental status Thrombocytopenia Macrocytic anemia Anxiety Cerebrovascular disease Dementia Depression GERD (gastroesophageal reflux disease) HTN (hypertension) Insomnia Knee pain Parkinson disease Plan: Bandemia has resolved; PCT trending down (elevated PCT suggests bacterial etiology). Continue Levaquin, day #2. CXR personally reviewed - atelectasis LLL. Uncertain whether criteria for severe sepsis is from rhinovirus (in which case severe sepsis is not the best diagnosis) or if there is another, unidentified bacterial source. UA neg; BC neg to date. Renal function stable on Levaquin; monitor for increased confusion/delirium on Levaquin. BP has been low/borderline-low since yesterday am - hold Lisinopril and Lasix ( also hold KDur while holding Lasix). Consult speech therapy to eval for dysphagia. Thrombocytopenia - improving, platelets up to 102. Macrocytic anemia - hgb decreased to 9.6. Check Vit B12 and prealbumin level. Subtle right facial droop - ? chronic w/ hx of stroke. Unable to fully test strength d/t difficulty following commands. DVT Prophylaxis: SCD's GI Prophylaxis: Protonix Hospital Course Summary Disclaimer: The visit summary below is not to be considered part of the above Progress Note. Hospital Course: Assessment: Rhinovirus Severe sepsis - based on suspected pulmonary source, SIRS criteria of tachycardia and bandemia and evidence of organ dysfunction with thrombocytopenia Respiratory distress with hypoxia Altered mental status Thrombocytopenia Macrocytic anemia Anxiety Cerebrovascular disease Dementia Depression GERD (gastroesophageal reflux disease) HTN (hypertension) Insomnia Knee pain Parkinsons disease 05/30/17 - hospital admission for observation Admit for observation to hospitalist team, Dr Liu attending. Continue Levaquin 750mg IV q d given the elevated procalcitonin and bandemia. Repeat CBC in am. Repeat lactate reflexed per sepsis protocol. Duoneb txs scheduled and prn. RT consult. O2 as needed. Hold IVF's as patient has had 30ml/kg in ER per sepsis protocol. Repeat BMP in am. SCD's for DVT prophylaxis. Due to platelet count of 93 will not initiate Lovenox. Repeat CXR in am OT/PT eval tomorrow assuming patient is improving. Care to return to at [facility] on discharge. Unable to elicit code status from patient at the present time. [id number] will check with daughter. Full code for now. 05/30/17 12:38 Continue Levaquin for now. Repeat cxr. d/w family that patient needs to be more alert to eat or drink. Make incentive spirometer available for her along with duonebs. Now in droplet precautions. Monitor for increased confusion. Continue home meds for Parkinsons. Hold lisinopril or atenolol if SBP<120. 05/31/17 Bandemia has resolved; PCT trending down (elevated PCT suggests bacterial etiology). Continue Levaquin, day #2. CXR personally reviewed - atelectasis LLL. Uncertain whether criteria for severe sepsis is from rhinovirus (in which case severe sepsis is not the best diagnosis) or if there is another, unidentified bacterial source. UA neg; BC neg to date. Renal function stable on Levaquin; monitor for increased confusion/delirium on Levaquin. BP has been low/borderline-low since yesterday am - hold Lisinopril and Lasix ( also hold KDur while holding Lasix). Consult speech therapy to eval for dysphagia. Thrombocytopenia - improving, platelets up to 102. Macrocytic anemia - hgb decreased to 9.6. Check Vit B12 and prealbumin level. <John Liu IV - Last Filed: 05/31/17 11:32> - Date 05/31/17 Objective Vital signs: Temperature 96.8 F 05/31/17 07:38 Pulse Rate 78 05/31/17 08:00 Respiratory Rate 18 05/31/17 07:38 Blood Pressure 106/66 05/31/17 07:38 Pulse Oximetry 94 05/31/17 07:38 Height/Weight/BMI: Weight 73.8 kg Results - Labs CBC & Chem 7: 05/31/17 04:11 05/31/17 04:11 Assessment and Plan (1) Altered mental status Current visit: Yes Status: Acute (2) Rhinovirus Current visit: Yes Status: Acute Assessment and Plan: I have independently evaluated and examined this patient. I reviewed the chart, the patient's history, and the AIR CARGO AGENT/PA's documented findings as above. We discussed and formulated the assessment and plan as above with additions as below: Mrs. Madrid is more alert. She responds clearly to some questions. She c/o cough, but it seems to be unproductive. She was able to work with ST and diet will be puree with nectar thick liquids. NAD, diminished breath sounds, rrr, s/nt/nd, trace BLE edema, a&o x1 No clear source for sepsis. Suspect pulmonary. No clear infiltrate on cxr, but atelectasis is improving. Continue Levaquin. Rhinovirus is present. Sats are OK on RA. BP remaining somewhat low. Hold parameters for Atenolol, hold lisinopril. Patient is more alert. Confusion is present, but baseline unclear. Monitor on Levaquin. Dysphagia is being followed by ST. Drop in hgb might be dilutional. Monitor. Hospital Course Summary Disclaimer: The visit summary below is not to be considered part of the above Progress Note. Hospital Course: 05/31/17 11:32 No clear source for sepsis. Suspect pulmonary. No clear infiltrate on cxr, but atelectasis is improving. Continue Levaquin. Rhinovirus is present. Sats are OK on RA. BP remaining somewhat low. Hold parameters for Atenolol, hold lisinopril. Patient is more alert. Confusion is present, but baseline unclear. Monitor on Levaquin. Dysphagia is being followed by ST. Drop in hgb might be dilutional. Monitor.
[2017-05-31] MEDS: MELOXICAM 7.5 MG TABLET PO SCH (11:45)
[2017-05-31] MEDS: MetroNIDAZOLE 500 MG TABLET PO SCH (17:47)
[2017-05-31] MEDS: GABAPENTIN 100 MG CAPSULE PO SCH (20:15)
[2017-06-01] MEDS: PANTOPRAZOLE 40 MG INJECTION IVP SCH (08:37)
[2017-06-01] MEDS: DIVALPROEX 250 MG TABLET PO SCH ×3 (08:39→17:03)
[2017-06-01] MEDS: ASPIRIN/DIPYRIDAMOLE 25 MG/200 MG CAPSULE PO SCH ×2 (08:39→20:47)
[2017-06-01] MEDS: ATENOLOL 25 MG TABLET PO SCH (08:39)
[2017-06-01] MEDS: MetroNIDAZOLE 500 MG TABLET PO SCH ×3 (08:40→17:03)
[2017-06-01] MEDS: PRAMIPEXOLE 0.25 MG TABLET PO SCH ×2 (08:40→20:46)
[2017-06-01] MEDS: RIVASTIGMINE 4.6 MG/24 HR PATCH TD SCH (08:40)
[2017-06-01] MEDS: ASCORBIC ACID 500 MG TABLET PO SCH (08:40)
[2017-06-01] MEDS: SERTRALINE 25 MG TABLET PO SCH (08:41)
[2017-06-01] MEDS: QUETIAPINE 25 MG TABLET PO SCH ×2 (08:41→20:47)
[2017-06-01] MEDS: BUSPIRONE 10 MG TABLET PO SCH ×2 (08:46→20:47)
[2017-06-01] MEDS ORDERED: LEVOFLOXACIN PB 750 MG/150 ML BAG IV SCH (09:00)
[2017-06-01] MEDS: MELOXICAM 7.5 MG TABLET PO SCH (11:02)
[2017-06-01] MEDS: RIVASTIGMINE PATCH REMOVAL TD SCH (11:03)
[2017-06-01] MEDS: NS 1,000 ML IV SCH (11:20)
[2017-06-01] MEDS: ALBUTEROL/IPRATROPIUM 2.5mg-0.5mg/3ml NEB AEROSOL SCH ×3 (11:52→21:00)
--- NOTE | 2017-06-01 13:54 | Progress Note ---
<Deanna Sellers - Last Filed: 06/01/17 13:50> - Date 06/01/17 Subjective: Patient is seen today lying in bed in her room. I'm unable to understand what she says, family is not present. She continues on treatment for C. difficile. The nurse stated her stools have slowed down quite a bit. She's not had any fever. She is having less irritation perianal. Nurse reports she continues to have quite a bit of coughing. She's been taking in some liquids and food. Objective Vital signs: Temperature 96.5 F L 06/01/17 07:43 Pulse Rate 68 06/01/17 07:43 Respiratory Rate 24 06/01/17 11:53 Blood Pressure 121/76 06/01/17 07:43 Pulse Oximetry 92 06/01/17 11:53 Height/Weight/BMI: Weight 73.5 kg - Constitutional Present: well nourished, well developed - Routine HEENT Exam Head: Present: normocephalic, atraumatic - Routine Respiratory Exam Present: decreased breath sounds, diminished air movement. Absent: wheezes - Routine Cardiovascular Exam Present: RRR, S1, S2. Absent: murmur - Routine Abdominal Exam Present: soft, normoactive bowel sounds, non distended. Absent: tenderness - Routine Extremities Exam Present: edema (trace bilateral lower extremities), normal capillary refill - Routine Skin Exam Present: dry, warm - Routine Neurological Exam Present: alert, altered mental status. Absent: normal speech - Routine Lymphatic Exam Lymphatic: Absent: adenopathy - Routine Psychiatric Exam Present: cooperative, unable to assess Results - Labs CBC & Chem 7: 06/01/17 05:13 06/01/17 05:13 Assessment and Plan (1) Rhinovirus Current visit: Yes Status: Acute (2) Altered mental status Current visit: Yes Status: Acute Assessment and Plan: Assessment: Rhinovirus C. difficile diarrhea and on Flagyl Severe sepsis - based on suspected pulmonary source, SIRS criteria of tachycardia and bandemia and evidence of organ dysfunction with thrombocytopenia Respiratory distress with hypoxia - hypoxia resolved Hypokalemia Altered mental status Thrombocytopenia-POA Macrocytic anemia-POA Anxiety Cerebrovascular disease Dementia Depression GERD (gastroesophageal reflux disease) HTN (hypertension) Insomnia Knee pain Parkinson disease Plan: Stool came back yesterday positive for C. difficile. Flagyl was initiated. No indication of bacterial source of pulmonary infection. Will DC Levaquin in light of the positive C. difficile. Initiate routine nebulizer treatments w/ DuoNeb due to continued cough. Remains on room air. She was given KCl 40 mEq by mouth today due to hypokalemia. Lasix and potassium and JANETT inhibitor are currently on hold due to recent borderline low BP's. Hemoglobin has stabilized. Her B12 was normal. Normal saline at 75 cc/hr for fluid maintenance as she's not had adequate p.o. intake. Will need to watch fluid status given her Lasix is on hold. Hospital Course Summary Disclaimer: The visit summary below is not to be considered part of the above Progress Note. Hospital Course: 05/30/17-hospital admission for observation Admit for observation to hospitalist team, Dr Liu attending. Continue Levaquin 750mg IV q d given the elevated procalcitonin and bandemia. Repeat CBC in am. Repeat lactate reflexed per sepsis protocol. Duoneb txs scheduled and prn. RT consult. O2 as needed. Hold IVF's as patient has had 30ml/kg in ER per sepsis protocol. Repeat BMP in am. SCD's for DVT prophylaxis. Due to platelet count of 93 will not initiate Lovenox. Repeat CXR in am Repeat EKG tomorrow to eval QT interval given potential med interactions prolonging QT interval. Telemetry. OT/PT eval tomorrow assuming patient is improving. Care to return to at [facility] on discharge. Unable to elicit code status from patient at the present time. [id number] will check with daughter. Full code for now. 05/31/17 11:32 Bandemia has resolved; PCT trending down (elevated PCT suggests bacterial etiology). Continue Levaquin, day #2. CXR personally reviewed - atelectasis LLL. Uncertain whether criteria for severe sepsis is from rhinovirus (in which case severe sepsis is not the best diagnosis) or if there is another, unidentified bacterial source. UA neg; BC neg to date. Renal function stable on Levaquin; monitor for increased confusion/delirium on Levaquin. BP has been low/borderline-low since yesterday am - hold Lisinopril and Lasix ( also hold KDur while holding Lasix). Consult speech therapy to eval for dysphagia. Thrombocytopenia - improving, platelets up to 102. Macrocytic anemia - hgb decreased to 9.6. Check Vit B12 and prealbumin level. 06/01/17 Stool came back yesterday positive for C. difficile. Flagyl was initiated. No indication of bacterial source of pulmonary infection. Will DC Levaquin in light of the positive C. difficile. Initiate routine nebulizer treatments w/ DuoNeb due to continued cough. Remains on room air. She was given KCl 40 mEq by mouth today due to hypokalemia. Lasix and potassium and JANETT inhibitor are currently on hold due to recent borderline low BP's. Hemoglobin has stabilized. Her B12 was normal. Normal saline at 75 cc/hr for fluid maintenance as she's not had adequate p.o. intake. Will need to watch fluid status given her Lasix is on hold <John Liu IV - Last Filed: 06/01/17 15:18> - Date 06/01/17 Objective Vital signs: Temperature 96.5 F L 06/01/17 07:43 Pulse Rate 68 06/01/17 07:43 Respiratory Rate 24 06/01/17 11:53 Blood Pressure 121/76 06/01/17 07:43 Pulse Oximetry 92 06/01/17 11:53 Height/Weight/BMI: Weight 73.5 kg Results - Labs CBC & Chem 7: 06/01/17 05:13 06/01/17 05:13 Assessment and Plan (1) Altered mental status Current visit: Yes Status: Acute (2) Rhinovirus Current visit: Yes Status: Acute Assessment and Plan: I have independently evaluated and examined this patient. I reviewed the chart, the patient's history, and the DIRECTOR OF SUPPLY CHAIN/PA's documented findings as above. We discussed and formulated the assessment and plan as above with additions as below: Barbara is resting comfortably. She is alert and her speech is more easily understood. She is still confused. No family present. NAD, diminished breath sounds, rrr no murmur, s/nt/nd +bs, not oriented to time , place Severe sepsis d/t GI source, C diff. Continue oral flagyl. Supportive care for rhinovirus infection. She is doing relatively well on RA. Hospital Course Summary Disclaimer: The visit summary below is not to be considered part of the above Progress Note. Hospital Course: 11/17/17 15:18 Severe sepsis d/t GI source, C diff. Continue oral flagyl. Supportive care for rhinovirus infection. She is doing relatively well on RA.
[2017-06-01] MEDS: GABAPENTIN 100 MG CAPSULE PO SCH (20:47)
[2017-06-02] MEDS: NS 1,000 ML IV SCH ×2 (00:24→13:51)
[2017-06-02] MEDS: ALBUTEROL/IPRATROPIUM 2.5mg-0.5mg/3ml NEB AEROSOL SCH ×4 (07:18→20:00)
[2017-06-02] MEDS: PANTOPRAZOLE 40 MG INJECTION IVP SCH (08:47)
[2017-06-02] MEDS: DIVALPROEX 250 MG TABLET PO SCH ×3 (08:48→18:17)
[2017-06-02] MEDS: QUETIAPINE 25 MG TABLET PO SCH ×2 (08:49→20:12)
[2017-06-02] MEDS: SERTRALINE 25 MG TABLET PO SCH (08:49)
[2017-06-02] MEDS: ASCORBIC ACID 500 MG TABLET PO SCH (08:49)
[2017-06-02] MEDS: MetroNIDAZOLE 500 MG TABLET PO SCH ×3 (08:49→18:17)
[2017-06-02] MEDS: ATENOLOL 25 MG TABLET PO SCH (08:50)
[2017-06-02] MEDS: PRAMIPEXOLE 0.25 MG TABLET PO SCH ×2 (08:50→20:13)
[2017-06-02] MEDS: BUSPIRONE 10 MG TABLET PO SCH ×2 (08:50→20:12)
[2017-06-02] MEDS: ASPIRIN/DIPYRIDAMOLE 25 MG/200 MG CAPSULE PO SCH ×2 (08:50→20:14)
[2017-06-02] MEDS: RIVASTIGMINE PATCH REMOVAL TD SCH (08:51)
[2017-06-02] MEDS: RIVASTIGMINE 4.6 MG/24 HR PATCH TD SCH (08:51)
[2017-06-02] MEDS: MELOXICAM 7.5 MG TABLET PO SCH (12:16)
--- NOTE | 2017-06-02 16:10 | Progress Note ---
- Date 06/02/17 Subjective: Pt is difficult to understand with her speech. Pt is alert but not oriented. Doesn't seem to be complaining of anything. Objective Vital signs: Temperature 98.4 F 06/02/17 15:18 Pulse Rate 87 06/02/17 15:18 Respiratory Rate 22 06/02/17 15:18 Blood Pressure 148/70 H 06/02/17 15:18 Pulse Oximetry 92 06/02/17 15:18 Rhythm: Normal Sinus Rhythm Height/Weight/BMI: Weight 73.142 kg - Constitutional Present: no acute distress - Routine HEENT Exam Head: Present: normocephalic, atraumatic Eye: Present: EOMI ENT: Present: mucous membranes moist - Routine Respiratory Exam Present: wheezes. Absent: accessory muscle use - Routine Cardiovascular Exam Present: RRR, no murmur - Routine Abdominal Exam Present: soft. Absent: rebound, guarding - Routine Extremities Exam Absent: cyanosis, clubbing - Routine Skin Exam Present: intact, dry - Routine Neurological Exam Present: alert. Absent: oriented X3 Results - Labs CBC & Chem 7: 06/02/17 04:11 06/02/17 04:11 Assessment and Plan (1) Rhinovirus Current visit: Yes Status: Acute (2) Altered mental status Current visit: Yes Status: Acute Assessment and Plan: Severe sepsis 2/2 C. diff -Resolved, cont. flagyl -Blood cx's ngtd Macrocytic Anemia -B12 wnls, check folate -Likely MDS with pancytopenia type picture Leukopenia -Possibly MDS vs. flagyl related -Order peripheral smear URI 2/2 Rhino -Supportive tx Hospital Course Summary Disclaimer: The visit summary below is not to be considered part of the above Progress Note. Hospital Course: 06/01/17 15:18 Severe sepsis d/t GI source, C diff. Continue oral flagyl. Supportive care for rhinovirus infection. She is doing relatively well on RA. 06/02/17 16:47 Pt seems to be improving. Cont. abx tx and cont. to monitor
[2017-06-02] MEDS: GABAPENTIN 100 MG CAPSULE PO SCH (20:12)
[2017-06-03] MEDS: NS 1,000 ML IV SCH ×2 (03:12→16:52)
[2017-06-03] MEDS: ALBUTEROL/IPRATROPIUM 2.5mg-0.5mg/3ml NEB AEROSOL SCH ×4 (08:31→19:31)
[2017-06-03] MEDS: PRAMIPEXOLE 0.25 MG TABLET PO SCH ×2 (09:09→20:43)
[2017-06-03] MEDS: BUSPIRONE 10 MG TABLET PO SCH ×2 (09:09→20:42)
[2017-06-03] MEDS: ASPIRIN/DIPYRIDAMOLE 25 MG/200 MG CAPSULE PO SCH ×2 (09:09→20:42)
[2017-06-03] MEDS: QUETIAPINE 25 MG TABLET PO SCH ×2 (09:10→20:42)
[2017-06-03] MEDS: SERTRALINE 25 MG TABLET PO SCH (09:10)
[2017-06-03] MEDS: MetroNIDAZOLE 500 MG TABLET PO SCH ×3 (09:10→16:51)
[2017-06-03] MEDS: ASCORBIC ACID 500 MG TABLET PO SCH (09:10)
[2017-06-03] MEDS: ATENOLOL 25 MG TABLET PO SCH (09:10)
[2017-06-03] MEDS: DIVALPROEX 250 MG TABLET PO SCH ×3 (09:10→16:51)
[2017-06-03] MEDS: PANTOPRAZOLE 40 MG INJECTION IVP SCH (09:11)
[2017-06-03] MEDS: RIVASTIGMINE PATCH REMOVAL TD SCH (09:11)
[2017-06-03] MEDS: RIVASTIGMINE 4.6 MG/24 HR PATCH TD SCH (09:11)
[2017-06-03] MEDS: MELOXICAM 7.5 MG TABLET PO SCH (11:40)
--- NOTE | 2017-06-03 12:02 | Progress Note ---
- Date 06/03/17 Subjective: Pt is difficult to understand. Not answering questions appropriately but likely this is her baseline with underlying dementia. Objective Vital signs: Temperature 96.3 F L 06/03/17 09:04 Pulse Rate 73 06/03/17 09:04 Respiratory Rate 20 06/03/17 09:04 Blood Pressure 123/72 06/03/17 09:04 Pulse Oximetry 93 06/03/17 09:04 Rhythm: Normal Sinus Rhythm Height/Weight/BMI: Weight 75.6 kg - Constitutional Present: no acute distress - Routine HEENT Exam Head: Present: normocephalic, atraumatic ENT: Present: mucous membranes moist - Routine Respiratory Exam Present: wheezes - Routine Cardiovascular Exam Present: RRR, no murmur - Routine Abdominal Exam Present: soft, non distended, non tender - Routine Extremities Exam Absent: cyanosis, clubbing - Routine Skin Exam Present: intact, dry - Routine Neurological Exam Present: alert. Absent: oriented X3 Results - Labs CBC & Chem 7: 06/03/17 04:29 06/03/17 04:29 Assessment and Plan (1) Rhinovirus Current visit: Yes Status: Acute (2) Altered mental status Current visit: Yes Status: Acute Assessment and Plan: Severe sepsis 2/2 C. diff -Resolved, cont. flagyl -Blood cx's ngtd Macrocytic Anemia -B12 wnls, check folate -Likely MDS with pancytopenia type picture Leukopenia -Possibly MDS vs. flagyl related -peripheral smear pending -ANC 1144, monitor URI 2/2 Rhino -Supportive tx Hospital Course Summary Disclaimer: The visit summary below is not to be considered part of the above Progress Note. Hospital Course: 06/01/17 15:18 Severe sepsis d/t GI source, C diff. Continue oral flagyl. Supportive care for rhinovirus infection. She is doing relatively well on RA. 06/02/17 16:47 Pt seems to be improving. Cont. abx tx and cont. to monitor 06/03/17 12:10 Pt continues to improve but it is difficult to evaluate if she is close to her baseline with her underlying dementia. Will cont. current medical management and monitor.
[2017-06-03] MEDS: GABAPENTIN 100 MG CAPSULE PO SCH (20:42)
[2017-06-03] MEDS: ACETAMINOPHEN 325 MG TABLET PO PRN (20:44)
[2017-06-04] MEDS: NS 1,000 ML IV SCH (05:40)
[2017-06-04] MEDS: ACETAMINOPHEN 325 MG TABLET PO PRN (05:42)
[2017-06-04] MEDS: ALBUTEROL/IPRATROPIUM 2.5mg-0.5mg/3ml NEB AEROSOL SCH ×2 (07:28→11:05)
[2017-06-04 07:57] VITALS: BP 139/84; TEMP 96.3
--- NOTE | 2017-06-04 08:37 | Progress Note ---
- Date 06/04/17 Subjective: Barbara was on oxygen when the daytime RN came in for her shift, but Barbara was in no distress and was maintaining high sats. The oxygen was dc'd, and she' s been maintaining sats on room air since. She complains of a cough but denies sinus congestion. Family was in visiting yesterday; they didn't mention any concerns about Barbara's mental status. Per CM, she is able to answer questions and discuss immediate happenings, but is not a good historian. This am Barbara was telling me about her kids and some sort of mess they had to clean up. She occasionally mumbled and her words were difficult to understand. CM believes that cognitively she is at at baseline. She had 3 formed stools yesterday and 2 overnight. Objective Vital signs: Temperature 96.3 F L 06/04/17 07:00 Pulse Rate 69 06/04/17 07:00 Respiratory Rate 22 06/04/17 07:20 Blood Pressure 139/84 06/04/17 07:00 Pulse Oximetry 92 06/04/17 07:20 Rhythm: Normal Sinus Rhythm Height/Weight/BMI: Weight 75.2 kg - Constitutional Present: no acute distress, well nourished, well developed - Routine HEENT Exam Head: Present: normocephalic ENT: Present: mucous membranes moist, oropharynx clear - Routine Respiratory Exam Present: CTA bilaterally - Routine Cardiovascular Exam Present: S1, S2, irregular rhythm - Routine Abdominal Exam Present: soft, normoactive bowel sounds, non distended, non tender - Routine Extremities Exam Present: no edema - Routine Skin Exam Present: intact, dry, warm - Routine Neurological Exam Present: alert, tremors - Routine Psychiatric Exam Present: cooperative Results - Labs CBC & Chem 7: 06/04/17 04:53 06/04/17 04:53 Assessment and Plan (1) Rhinovirus Current visit: Yes Status: Acute (2) Altered mental status Current visit: Yes Status: Acute Assessment and Plan: Severe sepsis 2/2 C. diff -Resolved, cont. flagyl -Blood cx's ng after 5 days Macrocytic Anemia -B12 wnls, check folate -Likely MDS with pancytopenia type picture Mild PCM -prealbumin 10.4 -nutritional supplements Leukopenia, WBC ranged 2.6-3.7 after flagly was started -Possibly MDS vs. flagyl related -peripheral smear pending Hypokalemia -improved to 3.7 -start KDur 10 mEq daily instead of Q2d especially with GI losses URI 2/2 Rhino -Supportive tx -room air sats >92% DVT Prophylaxis: SCD's GI Prophylaxis: Protonix Resuscitation Status: Do Not Resuscitate Hospital Course Summary Disclaimer: The visit summary below is not to be considered part of the above Progress Note. Hospital Course: 06/01/17 15:18 Severe sepsis d/t GI source, C diff. Continue oral flagyl. Supportive care for rhinovirus infection. She is doing relatively well on RA. 06/02/17 16:47 Pt seems to be improving. Cont. abx tx and cont. to monitor 06/03/17 12:10 Pt continues to improve but it is difficult to evaluate if she is close to her baseline with her underlying dementia. Will cont. current medical management and monitor. 06/04/17 08:44 At baseline. 5 BM over last 24 hours, all formed. Leukopenia persists, suspect secondary to flagyl. Peripheral smear pending. Recommend nutritional supplements for mild PCM. Increase KDur to daily vs. every other day, at least while she has increased GI output - will need to follow K. Maintaining sats on room air.
[2017-06-04] MEDS ORDERED: NON-FORMULARY MEDICATION 1 EACH EACH (Omeprazole Magnesium [Prilosec Otc] 20 MG) PO PRN (08:44)
[2017-06-04] MEDS: RIVASTIGMINE 4.6 MG/24 HR PATCH TD SCH (09:30)
[2017-06-04] MEDS: PRAMIPEXOLE 0.25 MG TABLET PO SCH (09:31)
[2017-06-04] MEDS: ASCORBIC ACID 500 MG TABLET PO SCH (09:31)
[2017-06-04] MEDS: SERTRALINE 25 MG TABLET PO SCH (09:31)
[2017-06-04] MEDS: ATENOLOL 25 MG TABLET PO SCH (09:31)
[2017-06-04] MEDS: DIVALPROEX 250 MG TABLET PO SCH ×2 (09:31→11:55)
[2017-06-04] MEDS: MetroNIDAZOLE 500 MG TABLET PO SCH ×2 (09:31→11:56)
[2017-06-04] MEDS: RIVASTIGMINE PATCH REMOVAL TD SCH (09:32)
[2017-06-04] MEDS: QUETIAPINE 25 MG TABLET PO SCH (09:32)
[2017-06-04] MEDS: BUSPIRONE 10 MG TABLET PO SCH (09:32)
[2017-06-04] MEDS: ASPIRIN/DIPYRIDAMOLE 25 MG/200 MG CAPSULE PO SCH (09:32)
[2017-06-04 10:03] VITALS: PULSE 60
[2017-06-04 11:15] VITALS: RESP 24; O2SAT 95
--- NOTE | 2017-06-04 11:19 | Discharge Summary ---
Discharge Information Date of admission: 05/30/17 14:19 Anticipated date of discharge: 06/04/17 Attending Physician: Vincent Simons MD Primary care physician: Mally Biggs MD - Discharge Diagnosis (1) C. difficile diarrhea Status: Acute (2) Rhinovirus Status: Acute (3) Altered mental status Status: Resolved Discharge diagnoses: Severe sepsis 2/2 C. diff (POA) - sepsis syndrome & diarrhea resolved Macrocytic Anemia Mild PCM Leukopenia, poss MDS, WBC ranged 2.6-3.7 after Flagyl was started Thrombocytopenia - resolved Hypokalemia - improved URI 2/2 Rhino Chronic conditions: Anxiety Cerebrovascular disease Oral pharyngeal dysphagia Dementia Depression GERD (gastroesophageal reflux disease) HTN (hypertension) Insomnia Knee pain Parkinson disease - Laboratory Labs: 06/04/17 04:53 06/04/17 04:53 - Microbiology Blood cultures negative after 5 days Resp panel + rhinovirus - Radiology Radiology: Date of Exam: 05/30/17 PROCEDURE: XR chest 1V Findings: Lungs are hypoinflated. Linear areas of opacity in both lower lobes could represent atelectasis. Upper lung lopez are grossly clear. No pneumothorax or definite effusion. Left pacemaker. Cardiac silhouette is within normal limits allowing for hypoinflation. Pulmonary vascularity is somewhat obscured due to motion artifact. Impression: Hypoinflation with bibasilar probable atelectasis. Date of Exam: 05/31/17 PROCEDURE: CHEST 2-VIEWS UPRIGHT (PA & LAT) Findings: Lungs are slightly better aerated on today's exam but remain mildly hypoinflated. Linear atelectasis remains in the right lower lobe. Linear area of probable atelectasis in the left base has improved but is somewhat obscured by the patient's pacemaker. No new areas of airspace disease. No pneumothorax or effusion. Heart size and mediastinal contours are stable. Pulmonary vascularity appears normal. Severe upper lumbar compression fracture, likely chronic. Impression: Improving atelectasis. History of Present Illness HPI: Patient is an 81 yo from [facility] who was brought in due to worsening cough, weakness and altered mental status. She has had increasing cough over the past few days. This morning she was found to have low O2 sats and was confused, prompting her visit. She was given a dose of Zithromax 500mg yesterday for possible pneumonia. CXR yesterday showed increased atelectasis. CXR today showed hypoinflation with bibasilar atelectasis. No obvious infiltrate. She was started on O2 en route to the hospital She was given 30mg/kg of IVF's in the ER as she had persistent hypotension. She was given a dose of Levaquin 750mg as well. RT suctioned a large amount of mucous. Her lactate was normal at 1.5. Procalcitonin elevated at 5.59. Normal WBC but has elevated bands. Patient's PCP is Dr. Biggs. Pt is a full transfer with lift. History is taken from the [id number] and ED physician as patient is too weak to communicate. Objective Vital signs: Temperature 96.3 F L 06/04/17 07:00 Pulse Rate 60 06/04/17 08:00 Respiratory Rate 24 06/04/17 11:05 Blood Pressure 139/84 06/04/17 07:00 Pulse Oximetry 95 06/04/17 11:05 Height/Weight/BMI: Weight 75.2 kg Comments: see progress note from earlier today Hospital Course This is a general summary of the patient's hospital course. For more details refer to the complete medical record. Hospital course: Barbara was admitted on 05/30/17 for severe sepsis, URI with rhinovirus. Levaquin was started for suspected pulmonary source for her severe sepsis. After her first night in the hospital, C. diff was identified. Levaquin was discontinued and Flagyl was started. In the ED, she was hypotensive. She received full 30 mL/kg fluid bolus in ED for hypotension and her BP improved. On the floor, Lisinopril and Lasix were held but her BB was continued. Speech therapy was consulted, and recommended a pureed diet with nectar thick liquids. She requires someone to feed her. CBC was trended daily. WBC was 4.7 on admit then decreased daily. Leukopenia was thought to be secondary to Flagyl effect vs MDS, and will require ongoing eval vs further workup in outpt setting. Peripheral smear was ordered but was pending on day of discharge. Bandemia resolved and procalcitonin trended down. Platelets were low on admission at 93, but increased daily and were normal by day of discharge. She was also found to have macrocytic anemia, but Vit B12 was normal. Prealbumin was 10 and nutritional supplements were recommended. She had intermittent problems with hypokalemia requiring oral replacement, likely exacerbated by GI losses secondary to C. diff. At time of DC her KDur was increased from every other day to daily. By day of discharge she was having formed stools and her mental status had returned to baseline. She was discharged back to [facility] while she had been in precautions for rhinovirus and C. diff here the facility will need to follow their own protocols for infectious diseases. F/U with Dr. Biggs within a week and will order CBC and BMP to be rechecked on 06/06/17 to f/u on leukopenia and hypokalemia. Lasix and lisinopril were resumed at discharge. New medications/updates: Flagyl 500 mg TID through 06/09/17 (10-day course) Culturelle TID x 10 days KDur 10 mEq daily (used to be every other day) CBC/BMP ordered for 06/06/17. Peripheral smear pending. Time spent with patient: greater than 35 minutes DVT Prophylaxis: SCD's GI Prophylaxis: other (omeprazole) Discharge Plan - Discharge Disposition Discharge Date: 06/04/17 Disposition: 04 To [facility] Home/Facility *Condition: Stable Reason For Visit (Visit label in EMR): sepsis, altered mental status - Discharge Medications *Discharge Medications: New Lactobacillus [Culturelle] 2 cap PO TID 10 Days #60 tablet Potassium Chloride [K-Dur] 10 meq PO WB tab MetroNIDAZOLE [Flagyl] 500 mg PO TIDWM 5 Days #15 tab Continue Omeprazole Magnesium [Prilosec Otc] 20 mg PO DAILY PRN PRN Reason: Prn Orders Magnesium Hydroxide [Milk of Magnesia] 30 ml PO Q72H PRN PRN Reason: Constipation Melatonin 3 mg PO HS PRN PRN Reason: Insomnia guaiFENesin [Mucinex] 600 mg PO Q12H PRN PRN Reason: Congestion Guaifenesin Oral Liq [Robitussin] 100 mg PO Q4H PRN PRN Reason: Cough Bisacodyl Supp [Dulcolax] 10 mg RECTALLY DAILY PRN PRN Reason: Constipation Carbidopa/Levodopa [Carbidopa-Levodopa 25-100 Tab] 1 tab PO Q3H Divalproex Sodium [Depakote] 250 mg PO TIDWM Quetiapine [Seroquel] 25 mg PO BID Docusate Sodium [Colace] 100 mg PO BID Buspirone [Buspar] 10 mg PO BID Aspirin/Dipyridamole [Aggrenox 25 mg-200 mg Capsule] 1 cap PO BID Sertraline [Zoloft] 25 mg PO DAILY Ascorbate Calcium [Vitamin C] 500 mg PO DAILY Rivastigmine [Exelon] 1 patch TD DAILY Gabapentin [Neurontin] 100 mg PO HS Lisinopril [Prinivil] 5 mg PO DAILY Furosemide [Lasix] 20 mg PO DAILY Nystatin Powder [Mycostatin] 1 applicatio TP BID PRN PRN Reason: Prn Orders Trolamine Salicylate 10% Cream [Aspercreme] 1 applicatio TOP TID PRN PRN Reason: Pain Acetaminophen 650 mg PO Q4H PRN PRN Reason: Pain Albuterol Sulfate 2.5 mg AEROSOL Q6H PRN PRN Reason: Wheezing Pramipexole Di-HCl [Mirapex] 0.125 mg PO BID Cholecalciferol (Vitamin D3) [Vitamin D3] 2,000 unit PO DAILY Meloxicam 7.5 mg PO NOON Atenolol [Tenormin] 25 mg PO DAILY Hydrocodone/APAP 5/325 [[place] 5/325] 1 tab PO Q6H PRN #16 tab PRN Reason: Pain Discontinued Potassium Chloride [K-Dur] 10 meq PO Q2D Azithromycin 500 mg PO 1800 - Discharge Packet/Instructions *Diet: Pureed diet with nectar thick liquids. Someone will need to feed her. *Activity: She requires a full lift. *Pain Management/Treatment: Tylenol, hydrocodone PRN. *Wound Care: Monitor for signs of yeast in between skin folds. Provide good skin care. She is at high risk of skin breakdown due to immobility, illness, malnutrition. *Expected Signs/Symptoms: C. diff: Her diarrhea resolved, but she may have more than 1 BM per day. Some people have abdominal cramping. Rhinovirus: She may have a mild cough and congestion. Use facility precautions for C. diff and rhinovirus. *Notify Physician if: Fever, increased stool output, blood in stool, vomiting, shortness of breath, altered mental status, any new concerns. *During Business Hours Contact: Dr. Biggs's office. *After Business Hours Contact: The on-call provider for Dr. Biggs. *Pending Lab/Results: Follow up w/your PCP (peripheral smear pending) Outpatient Orders: BMP - Basic Metabolic - AMS Time Frame: 2 Days, Location: Determined By Patient CBC w Auto Diff-AMS Time Frame: 2 Days, Location: Determined By Patient - Referrals/Follow Up *Referrals/Follow Up: Mally Biggs MD [Family Provider] - 1 Week (F/U on leukopenia and hypokalemia) - Patient Handouts - Dismissal Complete Discharge Instructions are:: Complete
[2017-06-04] MEDS: MELOXICAM 7.5 MG TABLET PO SCH (11:56)
--- NOTE | 2017-06-04 12:37 | Extended Care Facility Orders ---
Admission Orders Admit to:: [facility] Allergies/Adverse Reactions: Allergies cefaclor Allergy (Unknown, Verified 05/30/17 14:41) latex Allergy (Unknown, Verified 05/30/17 14:41) nalbuphine Allergy (Unknown, Verified 05/30/17 14:41) Admitting Diagnosis: sepsis, altered mental status, C. difficile, rhinovirus Admitting Physician: Vincent Simons MD Attending Physician: Vincent Simons MD Code Status: Do Not Resuscitate Anticiapted Length of Stay: 30 days or less Rehab Potential: poor Rehab Prognosis: poor Diet: Regular Diet: pureed with syrup thick liquids. Unable to feed herself. Offer nutritional supplements for protein calorie malnutrition. May use Facility Protocol or Standing Orders: Yes May have flu vaccine: Yes Evaluations/Treatment: as needed Senior Care Certification: I certify that SNF services are required to be given on an Inpatient basis because of the patient's need for [facility] care on a continuing basis for the condition(s) for which she received inpatient hospital services prior to her transfer to the SNF. SNF inpatient care is necessary for the following reasons Indication for Senior Care: Not Applicable - Additional Information In Event of Arrest: Do Not Start CPR Resident is Aware of Diagnosis: No (dementia) Laboratory/Radiology: Draw labs on 06/06/[address] Biggs: BMP to follow up on hypokalemia CBC to follow up on low WBC, anemia, and low platelets Referrals: Mally Biggs MD [Family Provider] - 1 Week (F/U on leukopenia and hypokalemia) Additional Orders: Pt was in precautions for rhinovirus and C. difficile. Please utilize your facility's precaution protocols.
[2017-06-05] MEDS ORDERED: OMEPRAZOLE 20 MG CAPSULE PO SCH (06:30)
== END 2017-06-04 15:50 | DRG 872 ==
LOC: MED 05:55 → ED 05:55 → MED 09:25 → SUATTDRO 14:19
PROVIDERS: ADMIT Hospitalist; ATTEND Internal Medicine